=== PATIENT | male | born 1970 | race Hispanic/Latino ===

== ENCOUNTER 2017-03-22 18:58 | Emergency (ER) | payer OTHER ==
[~2017-03-22] VITALS: Ht 167.6 cm; Wt 84.1 kg
[2017-03-22] MEDS ORDERED: NAPR500T3 PO (19:08)
[2017-03-22 20:10] VITALS: BP 140/83
--- NOTE | 2017-03-23 12:05 | REP ---
REASON: Pain. No history of trauma. FINDINGS: No acute fracture or destructive osseous lesion. There appears to be some soft tissue swelling which needs to be correlated clinically. Signed by Ishmael Hubbard DO 03/23/2017 08:53 A
== END 2017-03-22 20:13 | disposition home or self-care (01) ==
LOC: M ED 18:58
DX: S90.121A Contusion of right lesser toe(s) without damage to nail, initial encounter (principal); X58.XXXA Exposure to other specified factors, initial encounter; Y92.89 Other specified places as the place of occurrence of the external cause; Y93.89 Activity, other specified; Y99.8 Other external cause status